=== PATIENT | female | born 1970 | race Caucasian/White ===

== ENCOUNTER → 2016-07-01 | Day surgery (SDC) | payer BC ==
[~2016-07-01] MED LIST: ACETAMINOPHEN/HYDROcodone 325 MG/5 MG TAB ONE; APREPITANT 40 MG CAP ONE; BUPIVACAINE HCL PF 0.75% 30 ML VIAL ONE; KETOROLAC TROMETHAMINE 30 MG/ML (IVP) VIAL IV PUSH ONE; LACTATED RINGER'S 1,000 ML BAG IV ONE; LACTATED RINGER'S 1000 ML INJ 1,000 ML ONE; LIDOCAINE 1%/EPINEPHrine 1:100,000 SOLN 30 ML VIAL ONE; LIDOCAINE 1.5%/EPINEPHrine 1:200,000 PF SOLN 30 ML AMP ONE; MEPERIDINE HCL 25 MG/ML VIAL ONE; MIDAZOLAM HCL 5 MG/ML VIAL (1 ML) ONE; MORPHINE SULFATE 4 MG/ML INJ ONE; ONDANSETRON HCL 4 MG/2 ML VIAL IV PUSH ONE; PROPOFOL 200 MG/20 ML AMP IV ONE; SODIUM CHLORIDE 0.9% INJ 10 ML ONE; ceFAZolin 2 GM PREMIX 50 ML ONE; ceFAZolin INJ 1,000 MG VIAL ONE
--- NOTE | 2016-07-02 18:16 | MP ---
cc: RODOLFO CASTELLANO M.D. DATE OF SURGERY 07/01/16 PREOPERATIVE DIAGNOSIS Left knee anterior cruciate ligament rupture. POSTOPERATIVE DIAGNOSIS 1. Left knee anterior cruciate ligament rupture 2. Left the lateral meniscus tear posterior horn root tear involving 50% depth. PROCEDURE Left knee arthroscopic anterior cruciate ligament reconstruction using posterior tibialis allograft to left knee arthroscopic partial lateral meniscectomy. ANESTHESIA Femoral block and general SURGEON Karlos Castellano MD [employer] SURGEON [employer] ESTIMATED BLOOD LOSS Minimum DRAINS None SPECIMEN None COMPLICATIONS None known. INDICATION Jesusita Rodriguez is a 45-year-old female with unstable left knee ACL tear. We attempted nonoperative treatment and she felt significantly unstable. She is now indicated for surgical intervention. Graft choices were thoroughly discussed and a detailed informed consent was obtained. The anesthesiology physician assistant Chris Hobbs is an advanced registered nurse practitioner. His subspecialist is orthopedic surgery. His skill set was medically necessary for the performance of the operation. PROCEDURE IN DETAIL The patient was given a femoral block in the preop holding area brought to the operating room, placed under general anesthetic. The left lower extremity was draped and prepped in usual sterile fashion. IV antibiotics were given. Time-out was completed. The allograft was thawed at the back table and folded diameter was able to fit through a 9 mm tunnel. We proceeded with fixating with a 5 mm whipstitch distally and provisionally fixed to an Endo Button total length of 10.5 cm. We tensioned that at 15 pounds. Attention was drawn and an inferolateral portal made. Blunt trocar used to introduce the cannula and the knee insufflated with saline. Patellofemoral joint appeared normal. Lateral compartment was visualized and the lateral edge of the meniscus looked okay. There was a tear at the posterior root which is about 50% the depth of the lateral meniscus. The medial compartment showed normal-appearing meniscus. The ACL just looking straight on looked normal, but when we probed it it was unstable and that would correspond with the 2+ pivot shift and 2+ Margarito test that we had performed and the ACL was no longer attached to the femoral attachment site. Visualizing posteriorly near the femoral attachment site in the figure four position, we did see a significant tear and we photographed that. We proceeded with arthroscopic partial lateral meniscectomy using a combination of basket forceps and arthroscopic shaver, switched over switching stick to come in from the opposite angle, fine-tuned and smoothed from this angle and fine-tuned and smoothed from the other angle. Then proceeded with preparing the notch burrowing down to bone as identified in the [id number] position, making our femoral tunnel through the anterior medial tunnel with the [id number] guide and then drilling this 9 mm reamer and then the Endo Button reamer and then making our tibial hole to separate incision. The tunnel was also 9 mm. The graft had already been fixated with a whipstitch and we tied off the Endo Button, pulled it into place, blocked it on the femoral side, applied full range of motion of the knee, tensioned it with the knee slightly flexed and placed a 9 x 30 bi-interference screw with excellent fixation. No impingement was noted. Follow-up photograph taken here. Repeat diagnostic arthroscopy revealed no loose bodies. Arthroscopic equipment was removed. Closed with absorbable sutures. Steri-Strips applied. Sterile dressing applied. The patient was awaken, returned to recovery room in stable condition. MD LOLI Tsang/ /2:08 PM /6:01 PM
== END | disposition home or self-care (01) ==
LOC: ESDC 09:20
PROVIDERS: ATTEND Orthopaedic Surgery Sports Medicine
DX: S83.512A Sprain of anterior cruciate ligament of left knee, initial encounter (principal); S83.282A Other tear of lateral meniscus, current injury, left knee, initial encounter
CPT/HCPCS: 01400; 01991; 29881; 29888; 64447; C1713; J0690; J1885; J2175; J2250; J2270; J2405; J3010; J7120; J8501